=== PATIENT | male | born 2000 | race Caucasian/White ===

== ENCOUNTER 2024-03-07 13:54 | Emergency (ER) | payer SELFPAY ==
[2024-03-07] VITALS (20 sets, daily range): BP systolic 88–135; BP diastolic 52–91; PULSE 56–94; RESP 13–24; TEMP 36.6–36.8; O2SAT 94–100
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
--- NOTE | 2024-03-07 14:18 | CT_ITS ---
STUDY: CT BRAIN WITHOUT CONTRAST REASON FOR EXAM: Male, 23 years old. Psychosis RADIATION DOSAGE (If Supplied By Facility): CTDIvol = ( 44.99 ) mGy, DLP = ( 829.85 ) mGycm TECHNIQUE: Transaxial CT imaging of the brain was performed without administration of intravenous contrast material. Individualized dose optimization techniques were used for this CT. COMPARISON: No relevant priors. FINDINGS: Normal soft tissue structures. Normal calvarium. Normal size ventricles and extra-axial spaces for the patient''s age. Normal white matter tracts of the cerebral hemispheres. Normal basal ganglia and thalami. Normal brainstem. Normal cerebellum. There is no intracranial hemorrhage. There are no findings of an acute ischemic infarction. Normal visualized paranasal sinuses. CT/Brain/Head without Contrast IMPRESSION: Normal unenhanced CT scan of the brain. Electronically Signed: Brijesh Moffett MD at 15:47 EDT ,
[2024-03-07 14:40] LABS: Absolute Lymphocyte Count 1.21 X10^3/uL (0.83-4.51); Absolute Neutrophil Count 6.6 X10^3/uL (2.0-7.7); Basophil# 0.04 X10^3/uL; Basophil% 0.5 % (0-1); Eosinophil# 0.01 X10^3/uL; Eosinophils% 0.1 % (0-5); Hematocrit 41.6 % (40-54); Lymphocyte # 1.21 X10^3/ul (0.83-4.51); Lymphocyte % 13.9 % (19-41); Mean Corp Hgb Conc 33.7 g/dL (32-36); Mean Corpuscular Hgb 28.3 pg (27.0-32.0); Mean Corpuscular Volume 84.2 fL (80-94); Mean Platelet Vol. 9.5 fl (6.2-12.0); Monocyte# 0.84 X10^3/uL; Monocyte% 9.7 % (0-10); NRBC Flagged by Analyzer 0 % (0-5); Neutrophil # 6.58 X10^3/uL (2.7-7.7); Neutrophil % 75.6 % (47-70); Platelet Count 229 K/mm3 (150-450); RBC Distribution Width CV 12.7 % (11.6-14.6); RBC Distribution Width SD 38.3 fl (35.1-43.9); Red Blood Count 4.94 M/mm3 (4.6-6.2); White Blood Count 8.7 K/mm3 (4.4-11.0)
[2024-03-07 15:04] LABS: ALB/GLOB Ratio 1.8 RATIO (0.9-2.4); AST(SGOT) 38 U/L (15-37); Alanine Aminotransfer ALT/SGPT 33 U/L (16-61); Albumin, Serum 5.3 g/dL (3.2-5.0); Alkaline Phosphatase 65 U/L (45-117); Anion Gap 9 (5-15); BUN 17 mg/dL (7-18); BUN/Creat Ratio 13.2 RATIO (10-20); Calcium,Total 10.4 mg/dL (8.5-10.1); Chloride 106 mmol/L (98-107); Creatinine, Serum 1.29 mg/dL (0.70-1.30); EST Glomerular Filtration Rate 73 mL/min (>60); Est Glom Filt Rate - Afr Amer 89 mL/min (>60); Glucose 88 mg/dL (74-106); Potassium 3.6 mmol/L (3.5-5.1); Protein, Total 8.3 g/dL (6.4-8.2); Sodium Level 139 mmol/L (136-145); Thyroid Stim Hormone (TSH) 1.04 uIU/mL (0.358-3.74)
[2024-03-07] MEDS: Midazolam 2 MG/2 ML Syringe 3 MG IM (15:05)
[2024-03-07 15:12] LABS: Amphetamine Urine VISTA NEGATIVE (<1000 ng/mL); Barbiturate Urine VISTA NEGATIVE (< 200 ng/mL); Benzodiazepine Urine VISTA NEGATIVE (< 200 ng/mL); Cocaine Urine VISTA NEGATIVE (< 300 ng/mL); Ecstacy Urine VISTA NEGATIVE (< 500 ng/mL); Methadone Urine VISTA NEGATIVE (< 300 ng/mL); PCP Urine VISTA NEGATIVE (< 25 ng/mL); THC Urine VISTA POSITIVE (< 50 ng/mL); Vista UDS pH Range 5
--- NOTE | 2024-03-07 15:39 | CT_ITS ---
STUDY: CT SOFT TISSUE NECK WITH CONTRAST REASON FOR EXAM: Male, 23 years old. Abnormal air in neck on imaging RADIATION DOSAGE (If Supplied By Facility): CTDIvol = ( 9.24 ) mGy, DLP = ( 313.84 ) mGy TECHNIQUE: The patient was scanned in a multi-detector CT scanner. High resolution transaxial imaging was performed following intravenous administration of IV 100mL Isovue-370. Sagittal and coronal images were reconstructed. Individualized dose optimization techniques were used for this CT. COMPARISON: None. FINDINGS: There is evidence of a superior pneumomediastinum with air tracking in the cervical region diffusely. This extends into the base of the skull. Normal bilateral parotid glands. Normal bilateral harness cleaner spaces. Normal bilateral parapharyngeal spaces. Normal bilateral carotid spaces. Normal bilateral sublingual and submandibular glands and spaces. Normal visualized nasopharynx. Normal retropharyngeal space. Normal perivertebral space. Normal visualized bilateral faucial tonsils. The visualized tongue, tongue base and oropharynx are normal. The visualized cervical lymph nodes (levels I-) are within normal size limits, and maintain normal morphology. There is no demonstrated solid or cystic mass lesion. There is no abnormal contrast enhancement. Normal epiglottis, bilateral vallecula and hypopharynx. The pre-epiglottic and paraglottic adipose spaces are normal. Normal visualized bilateral piriform sinuses, aryepiglottic folds, vocal cords, and arytenoid-cricoid articulations. Normal subglottic trachea. Normal bilateral lobes of the thyroid gland. Normal visualized pulmonary apices. Normal visualized paranasal sinuses. Normal visualized cervical spine. CT/Soft Tissue Neck WITH Contrast IMPRESSION: Diffuse air is seen within the upper mediastinum extending to the neck and into the base of the skull. Electronically Signed: Brijesh Moffett MD at 16:04 EDT ,
--- NOTE | 2024-03-07 15:39 | CT_ITS ---
STUDY: CT CHEST WITH CONTRAST REASON FOR EXAM: Male, 23 years old. Abnormal air in neck on imaging RADIATION DOSAGE (If Supplied By Facility): CTDIvol = ( 17.36 ) mGy, DLP = ( 514.73 ) mGycm TECHNIQUE: Transaxial imaging was performed following intravenous administration of IV 100mL Isovue-370. Individualized dose optimization techniques were used for this CT. COMPARISON: No relevant priors. FINDINGS: CHEST Air is seen in the superior mediastinum extending into the cervical region bilaterally. The lungs are normal. There is no demonstrated pleural abnormality. No evidence of pneumothorax. Normal heart and pericardium. Small amount of air is seen in the mediastinum at the level of the mariama. Normal hilar regions. Normal unenhanced pulmonary arteries. Normal aorta arch and descending thoracic aorta. Normal osseous structures. Air is seen surrounding the esophagus. CT/Chest WITH Contrast IMPRESSION: Air is seen within the mediastinum extending into the lower cervical region as well as surrounding the esophagus. Possibility includes possible esophageal tear. No evidence of pneumothorax. No evidence of pleural effusions. Electronically Signed: Brijesh Moffett MD at 16:07 EDT ,
--- NOTE | 2024-03-07 22:26 | ED.RN ---
I called report called to [facility] nurseCain. No further questions by the nurse at this time.
[2024-03-08] VITALS: BP 125/54
== END 2024-03-08 00:10 | disposition short-term general hospital (02) ==
PROVIDERS: Emergency Provider Emergency Medicine; Visit Provider Emergency Medicine
DX: F23 Brief psychotic disorder (principal); J98.2 Interstitial emphysema; F32.A Depression, unspecified; R45.851 Suicidal ideations; F17.210 Nicotine dependence, cigarettes, uncomplicated; F17.290 Nicotine dependence, other tobacco product, uncomplicated; R05.9 Cough, unspecified; R11.2 Nausea with vomiting, unspecified; S00.411A Abrasion of right ear, initial encounter; S00.412A Abrasion of left ear, initial encounter; X58.XXXA Exposure to other specified factors, initial encounter
CPT/HCPCS: 70450; 70491; 71260; 80053; 80307; 80320; 84443; 85025; 87631; 96372; 99285; Q9967; A4216; G0480

== ENCOUNTER 2024-04-06 16:29 | Emergency (ER) | payer SELFPAY ==
[2024-04-06 16:34] VITALS: BP 126/87; PULSE 73; RESP 16; TEMP 36.8; O2SAT 98; BMI 20.7
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
[2024-04-06 17:37] LABS: Absolute Lymphocyte Count 1.49 X10^3/uL (0.83-4.51); Absolute Neutrophil Count 4.8 X10^3/uL (2.0-7.7); Basophil# 0.03 X10^3/uL; Basophil% 0.4 % (0-1); Eosinophil# 0.03 X10^3/uL; Eosinophils% 0.4 % (0-5); Hematocrit 42.9 % (40-54); Hemoglobin 14.1 g/dL (13.0-16.5); Lymphocyte # 1.49 X10^3/ul (0.83-4.51); Lymphocyte % 21.6 % (19-41); Mean Corp Hgb Conc 32.9 g/dL (32-36); Mean Corpuscular Hgb 28.4 pg (27.0-32.0); Mean Corpuscular Volume 86.3 fL (80-94); Mean Platelet Vol. 9.3 fl (6.2-12.0); Monocyte# 0.56 X10^3/uL; Monocyte% 8.1 % (0-10); NRBC Flagged by Analyzer 0 % (0-5); Neutrophil # 4.77 X10^3/uL (2.7-7.7); Neutrophil % 69.1 % (47-70); Platelet Count 225 K/mm3 (150-450); RBC Distribution Width CV 12.9 % (11.6-14.6); RBC Distribution Width SD 40.3 fl (35.1-43.9); Red Blood Count 4.97 M/mm3 (4.6-6.2); White Blood Count 6.9 K/mm3 (4.4-11.0)
[2024-04-06 17:42] LABS: Anion Gap 8 (5-15); BUN 13 mg/dL (7-18); BUN/Creat Ratio 12.7 RATIO (10-20); Calcium,Total 9.7 mg/dL (8.5-10.1); Chloride 105 mmol/L (98-107); Creatinine, Serum 1.02 mg/dL (0.70-1.30); EST Glomerular Filtration Rate 96 mL/min (>60); Est Glom Filt Rate - Afr Amer 116 mL/min (>60); Estimated Creatinine Clearance 110.42 ml/min; Glucose 143 mg/dL (74-106); Potassium 3.7 mmol/L (3.5-5.1); Sodium Level 138 mmol/L (136-145)
[2024-04-06 17:55] LABS: Amphetamine Urine VISTA NEGATIVE (<1000 ng/mL); Barbiturate Urine VISTA NEGATIVE (< 200 ng/mL); Benzodiazepine Urine VISTA NEGATIVE (< 200 ng/mL); Cocaine Urine VISTA NEGATIVE (< 300 ng/mL); Ecstacy Urine VISTA NEGATIVE (< 500 ng/mL); Methadone Urine VISTA NEGATIVE (< 300 ng/mL); PCP Urine VISTA NEGATIVE (< 25 ng/mL); THC Urine VISTA POSITIVE (< 50 ng/mL); Vista UDS pH Range 5
[2024-04-06 18:00] LABS: Alcohol, Blood (Medical)-Serum < 3.0 mg/dL
[2024-04-06] MEDS: Acetaminophen 500 MG Tablet PO (19:09)
--- NOTE | 2024-04-06 22:39 | ED.RN ---
Addendum entered by Pam Gallo 04/06/24 23:03: EDIT: Artie with crisis called back, changed mind about referral, referred to [facility], instead of [facility]. Original Note: ARTIE WITH CRISIS CALLED, REFERRED TO [facility]
--- NOTE | 2024-04-06 23:47 | ED.RN ---
PT ACCEPTED AT [facility] BY DR.RAYANI ANIKET THAO 8AM WITH PHYSICIANS
[2024-04-07 01:52] VITALS: BP 101/51; PULSE 55; RESP 14; TEMP 36.7; O2SAT 97
[2024-04-07 09:00] VITALS: BP 105/61; PULSE 73; RESP 14; O2SAT 99
[2024-04-07] MEDS: ASENAPINE MALEATE 5 MG TAB.SUBL SL (09:52)
--- NOTE | 2024-04-07 09:55 | NURSING ---
CALLED [facility], ETA IS 6 MIN
[2024-04-07 10:10] VITALS: BP 105/61; PULSE 73; RESP 14; TEMP 36.6; O2SAT 99
== END 2024-04-07 10:12 ==
PROVIDERS: Emergency Provider Emergency Medicine; Visit Provider Emergency Medicine
DX: F22 Delusional disorders (principal); F30.8 Other manic episodes; F17.210 Nicotine dependence, cigarettes, uncomplicated; F17.290 Nicotine dependence, other tobacco product, uncomplicated; F41.9 Anxiety disorder, unspecified; R73.9 Hyperglycemia, unspecified
CPT/HCPCS: 80048; 80307; 82077; 85025; 99283

== ENCOUNTER 2025-01-14 15:26 | Outpatient (RCR) | payer OTHER, SELFPAY ==
--- NOTE | 2025-01-14 16:33 | HP.PTEVAL ---
Patient's Visit Information Visit Information Visit Information: JESICA AMARO is a 24 year old M referred to Physical Therapy by ELTON Parker with a diagnosis of BPPV. Date of Evaluation: 01/14/25 Physical Therapist: AMANDA Negro Visit Plan Frequency: 1x/Week Duration: 3 Weeks Plan: Called Kar Hardy and informed him of what happened today and no signs of BPPV today. He will touch base with the pt but said to go ahead with the plan to re-check in 2 days for BPPV. Pt will go get his medicine as prescribed by the Dr and go to ER if symptoms get worse and call to schedule an appt in 2 days here for re-check for BPPV Subjective Subjective: Tuesday he went to bed around 3:00 and woke and he was super dizzy. Everything was spinning. He slept the whole day. He was feeling better around 7-8 am yesterday and then yesterday he was worse and today he is still dizzy and wanting to throw up. He is dizzy just sitting here. The room is spinning. He reports that when he rolls to the R side he is still dizzy. Today he feels pounding on his head. [facility] and he said no work for next few days. Sitting here right now he is spinning. When he walks, he feels like he is drunk (feels like controlled falling). It is a bit better since Tuesday but he has not been moving around at all. He does not have a fever but he does feel overheated. He reports that if he were to lay down right now and rolled to his R side he would be dizzy but not so dizzy going to the L. He has a strain on his head from spinning. He did throw up this morning, last night, and on Tuesday dry heaves. Objective Objective: R Hallpike some dizziness but no nystagmus L Hallpike was negative for dizziness and nystagmus R Hallpike again and was positive for dizziness but no nystagmus... treated with R EPLY and was dizzy afterward sitting up. He had no dizziness laying down. Tested R Hallpike again and it was positive for dizziness...possibly a little less...treated with R EPLY. Pt was dizzy upon sitting up and felt very nauseated. Opted to quit for today as he did not feel much better after resting and letting things settle Balance/Special Test Scores Dizziness Score: 74 Goals Goal 1:: I HEP Goal Time Frame: 2-4 Weeks Goal 2:: Abolish dizziness when roll to the R side in bed Goal Time Frame: 2-4 Weeks Goal 3:: Abolish overall dizziness Anticipated Interventions Patient/Client Instruction: Educate patient on: Condition and Plan of Care For the Purpose of:: To improve nutrient delivery to tissue, To improve muscle performance and motor function, To improve ability to perform ADL's, To increase tolerance to activity/condition/position, To improve gait and locomotor functions, To improve endurance, To improve safety with gait and To assume or resume ADL's Therapeutic Exercise to Include: Strength training, Balance training, Gait and locomotor training and Neuromotor development For the Purpose of:: To improve nutrient delivery to tissue, To increase oxygenation perfusion, To improve muscle performance and motor function, To improve ability to perform ADL's, To increase tolerance to activity/condition/position, To improve performance and independence with ADL's, To improve ability of physical actions for home/community/work/leisure, To improve gait and locomotor functions, To improve health of tissue and To improve safety with gait Text: Thank you for the opportunity to evaluate your patient. For Medicare and Medicare HMO plans, please review the plan of care and approve it. It will need to be FAXED BACK to us at [phone] for Medicare purposes. For Medicare only, by signing this I certify the plan of care. Please let me know if there are questions or concerns regarding this plan of care. Physician Signature: Date:
--- NOTE | 2025-06-25 08:45 | HP.PT.NRP ---
Patient Information Patient Information: JESICA AMARO was seen in my office for initial evaluation on 01/14/25. The following Plan of Care was established for this patient: POC Established Initial Frequency: 1x/Week Initial Duration: 3 Weeks Anticipated Interventions Patient/Client Instruction: Educate patient on: Condition and Plan of Care For the Purpose of:: To improve nutrient delivery to tissue, To improve muscle performance and motor function, To improve ability to perform ADL's, To increase tolerance to activity/condition/position, To improve gait and locomotor functions, To improve endurance, To improve safety with gait and To assume or resume ADL's Therapeutic Exercise to Include: Strength training, Balance training, Gait and locomotor training and Neuromotor development For the Purpose of:: To improve nutrient delivery to tissue, To increase oxygenation perfusion, To improve muscle performance and motor function, To improve ability to perform ADL's, To increase tolerance to activity/condition/position, To improve performance and independence with ADL's, To improve ability of physical actions for home/community/work/leisure, To improve gait and locomotor functions, To improve health of tissue and To improve safety with gait Last Seen Last Seen: This patient was last seen in our office 01/14/25. Pertinent comments regarding their Physical therapy will appear below: DC PT At this point I will be discontinuing this patient from physical therapy. I would be happy to see this patient again in the future if found appropriate by the physician. Thank you! Liz Delgado, MPT Balance/Gait/Functional tests Balance/Special Test Scores Dizziness Score: 74
== END 2025-01-14 19:00 | disposition home or self-care (01) ==
LOC: PT 15:26
PROVIDERS: Referring Provider Physician Assistant; Visit Provider Physician Assistant
DX: H81.10 Benign paroxysmal vertigo, unspecified ear (principal)
CPT/HCPCS: 97161